=== PATIENT | female | born 1955 | race African-American/Black ===

== ENCOUNTER 2019-02-20 15:45 | Emergency (ER) | payer OTHER ==
[2019-02-20] MEDS ORDERED: HYDROcodone/Acetaminophen 5/325 mg Tablet ONE (16:21)
[2019-02-20] MEDS ORDERED: Acetaminophen 500 MG TAB ONE (16:22)
--- NOTE | 2019-02-20 16:22 | CT ---
CT CERVICAL SPINE NONCONTRAST: DATE: 02/20/2019 HISTORY: cervical trauma FINDINGS: There are no jumped or perched facets. There is no evidence of acute fracture. The vertebral body hei ghts are maintained. There is no prevertebral soft tissue swelling. IMPRESSION: No evidence of acute fracture or acute traumatic subluxation.
== END 2019-02-20 16:32 | disposition home or self-care (01) ==
LOC: BURERS 15:45
DX: S13.4XXA Sprain of ligaments of cervical spine, initial encounter (principal); I11.0 Hypertensive heart disease with heart failure; I50.9 Heart failure, unspecified; I25.2 Old myocardial infarction; Z79.899 Other long term (current) drug therapy; Z79.891 Long term (current) use of opiate analgesic
CPT/HCPCS: 72125